=== PATIENT | male | born 1990 | race Caucasian/White ===

== ENCOUNTER 2019-06-10 21:14 | Emergency (ER) | payer MEDICARE, OTHER ==
[2019-06-10 21:21] VITALS: BP 160/84; PULSE 85; RESP 18; TEMP 99.3
[2019-06-10] MEDS ORDERED: ASPIRIN-ACET-CAFF 250-250-65MG 1 EACH TAB PO STA (21:35)
--- NOTE | 2019-06-10 21:37 | ED ---
Headache HPI - General Chief Complaint: Headache Stated Complaint: Headache Time Seen by Provider: 06/10/19 21:28 Mode of arrival: ambulatory Limitations: no limitations - History of Present Illness Initial Comments: 28-year-old male patient presents to the emergency department today for evaluation of headache. Patient states that headache started around 10:00 this morning. Patient states the headache is in the frontal region is reporting as a 5-6/10 on the pain scale. Patient denies any blurred or double vision with this. Denies any nausea, vomiting, numbness, tingling, or weakness. Denies any neck pain, fever, or chills. Patient states he has had similar type headaches in the past. Denies this being the worst headache of his life. Patient denies any recent head injury. States he came in to find out why he is getting headaches. Patient denies taking any medication for his symptoms. Patient states he has not seen his primary care physician for this. Patient is also requesting a work note as he called in the last 2 days. Patient denies any recent rash, fever, chills, shortness breath, chest pain, abdominal pain, diarrhea, constipation, back pain, dizziness, weakness, hematuria, dysuria, urinary urgency, urinary frequency, or any other complaints. - Related Data Home Medications Medication Instructions Recorded Confirmed Divalproex ER [Depakote ER] 500 mg PO HS 06/10/19 06/10/19 buPROPion XL [Wellbutrin Xl] 150 mg PO DAILY 06/10/19 06/10/19 risperiDONE 2 mg PO QAM 06/10/19 06/10/19 Allergies Allergy/AdvReac Type Severity Reaction Status Date / Time No Known Allergies Allergy Verified 06/10/19 21:41 Review of Systems ROS Statement: Those systems with pertinent positive or pertinent negative responses have been documented in the HPI. ROS Other: All systems not noted in ROS Statement are negative. Past Medical History Past Medical History: No Reported History History of Any Multi-Drug Resistant Organisms: None Reported Past Surgical History: No Surgical Hx Reported Past Psychological History: Bipolar Smoking Status: Current every day smoker Past Alcohol Use History: None Reported Past Drug Use History: None Reported General Exam Limitations: no limitations General appearance: alert, in no apparent distress, other (This is a well- developed, well-nourished adult male patient in no acute distress. Vital signs upon presentation are temperature 99.3F, pulse 85, respirations 18, blood pressure 160/84, pulse ox 98% on room air) Eye exam: Present: normal appearance, PERRL, EOMI. Absent: scleral icterus, con junctival injection, periorbital swelling ENT exam: Present: normal exam, normal oropharynx, mucous membranes moist Neck exam: Present: normal inspection, full ROM. Absent: tenderness, meningismus, lymphadenopathy Respiratory exam: Present: normal lung sounds bilaterally. Absent: respiratory distress, wheezes, rales, rhonchi, stridor Cardiovascular Exam: Present: regular rate, normal rhythm, normal heart sounds. Absent: systolic murmur, diastolic murmur, rubs, gallop, clicks GI/Abdominal exam: Present: soft, normal bowel sounds. Absent: distended, tenderness, guarding, rebound, rigid Neurological exam: Present: alert, oriented X3, CN II-XII intact, other (Strength in all 4 extremities is 5/5.) Psychiatric exam: Present: normal affect, normal mood Skin exam: Present: warm, dry, intact, normal color. Absent: rash Course Vital Signs 06/10/19 21:18 Temperature 99.3 F Pulse Rate 85 Respiratory 18 Rate Blood Pressure 160/84 O2 Sat by Pulse 98 Oximetry Medical Decision Making - Medical Decision Making 28-year-old male patient presents to the emergency department today for evaluation of headache. Patient states he had a headache since around 10 AM. Denies taking any medication for his symptoms. Denies any associated symptoms. Denies this being the worst headache of his life. Physical examination is unremarkable. He is neurologically intact with no focal deficits. He is requesting a work note. He will be discharged to follow-up with his primary care physician for recheck in 1-2 days. Return parameters were discussed in detail. He verbalizes understanding and agrees with this plan. Disposition Clinical Impression: Acute headache Disposition: HOME SELF-CARE Condition: Good Instructions (If sedation given, give patient instructions): Acute Headache (ED) Additional Instructions: Increase fluids. Rest. Keep headache diary if symptoms seem to persist. Follow up with primary care physician for recheck in 1-2 days. One has been recommended for you. Return to the emergency department for any new, worsening, or concerning symptoms. Is patient prescribed a controlled substance at d/c from ED?: No Referrals: Olena Craig MD [STAFF PHYSICIAN] - 1-2 days Time of Disposition: 21:36
== END 2019-06-10 21:57 | disposition home or self-care (01) ==
LOC: EC 21:14 → MERGE 21:14 → EC 21:57
DX: R51 Headache (principal); F31.9 Bipolar disorder, unspecified; F17.200 Nicotine dependence, unspecified, uncomplicated; Z79.899 Other long term (current) drug therapy
CPT/HCPCS: 99283

== ENCOUNTER 2019-06-21 14:23 | Emergency (ER) | payer MEDICARE, OTHER ==
[2019-06-21 14:34] VITALS: BP 126/80; PULSE 98; RESP 18; TEMP 98.3
[2019-06-21] MEDS ORDERED: KETOROLAC 60 MG/2 ML VIAL IM STA (16:36)
[2019-06-21] MEDS ORDERED: ONDANSETRON ODT 4 MG TAB PO STA (16:36)
[2019-06-21] MEDS ORDERED: diphenhydrAMINE 50 MG CAP PO STA (16:36)
--- NOTE | 2019-06-21 17:28 | ED ---
Headache HPI - General Chief Complaint: Headache Stated Complaint: Headache Time Seen by Provider: 06/21/19 16:15 Mode of arrival: ambulatory Limitations: no limitations - History of Present Illness Initial Comments: 28-year-old male presents emergency department for headache x 1 week. Patient states he has had on and off the past week he states it seems to go away coffee. Patient states he does not want to go to work. Patient was a visual changes nausea vomiting, neck, stiffness he denies any dizziness fevers. Patient denies any sudden onset of the headache he denies this being the worst headache of his life. Patient states he does struggle with chronic headaches. Patient denies sensation deficits to upper or lower,extremities any noted weakness speech changes. Patient has no other complaints. - Related Data Home Medications Medication Instructions Recorded Confirmed Divalproex ER [Depakote ER] 500 mg PO HS 06/10/19 06/10/19 buPROPion XL [Wellbutrin Xl] 150 mg PO DAILY 06/10/19 06/10/19 risperiDONE 2 mg PO QAM 06/10/19 06/10/19 Allergies Allergy/AdvReac Type Severity Reaction Status Date / Time No Known Allergies Allergy Verified 06/21/19 14:34 Review of Systems ROS Statement: Those systems with pertinent positive or pertinent negative responses have been documented in the HPI. ROS Other: All systems not noted in ROS Statement are negative. Past Medical History Past Medical History: Asthma History of Any Multi-Drug Resistant Organisms: None Reported Past Surgical History: No Surgical Hx Reported Past Psychological History: Bipolar Smoking Status: Current every day smoker Past Alcohol Use History: None Reported Past Drug Use History: None Reported General Exam - General Exam Comments Initial Comments: General: The patient is awake and alert, in no distress, and does not appear acutely ill. Eye: Pupils are equal, round and reactive to light, extra-ocular movements are intact. No nystagmus. There is normal conjunctiva bilaterally. No signs of icterus. Ears, nose, mouth and throat: There are moist mucous membranes and no oral lesions. Neck: The neck is supple, there is no tenderness or JVD. Cardiovascular: There is a regular rate and rhythm. No murmur, rub or gallop is appreciated. Respiratory: Lungs are clear to auscultation, respirations are non-labored, breath sounds are equal. No wheezes, stridor, rales, or rhonchi. Gastrointestinal: Soft, non-distended, non-tender abdomen without masses or organomegaly noted. There is no rebound or guarding present. Musculoskeletal: Normal ROM, no tenderness. Strength 5/5. Sensation intact. Pulses equal bilaterally 2+. Neurological: A&O x 3. CN II-XII intact, memory intact to immediately, intermediate and termite treater helper recall. Able to follow simple verbal. Able to name a common object (pen). High quality, labial (pa) and lingual (la) speech. Low quality posterior pharynx/larynx (ga) voice sounds. Able to express general knowledge (days in a week). No hemineglect or inattention noted. Finger agnosia (-) and spatially oriented (identified L index finger touched R shoulder with L index finger). Light touch and temperature sensation present over the face, chest, abdomen, back, UE bilaterally, and LE bilaterally. Able to localize point during point localization b/l and extinction. No visible bulk atrophy, hypertrophy, fasciculations, or myoclonus of the UE or LE b/l. Full PROM in UE and LE b/l. Bilateral muscle strength 5/5 for the following muscles: deltoid, biceps, triceps, brachioradialis, wrist extensors/flexor, hip flexor, hip abductors/adductors, hamstrings, quadriceps, feet dorsiflexors/plantar flexors. Finger to nose, finger to the examiners finger, and heel to andrews coordinated and accurate b/l. Coordinated and even demonstration of hand flip, finger to thumb, and toe tap b/l. Gait is coordinated and even in stride with tandem, toe and heel walk. Maintains balance with monopedal stance. (-) Romberg. (-) pronator drift. No nuchal rigidity. Skin: Skin is warm and dry and no rashes or lesions are noted. Psychiatric: Cooperative, appropriate mood & affect, normal judgment. Limitations: no limitations Course Vital Signs 06/21/19 06/21/19 14:32 18:03 Temperature 98.3 F 98.3 F Pulse Rate 98 98 Respiratory 18 18 Rate Blood Pressure 126/80 126/80 O2 Sat by Pulse 95 95 Oximetry Medical Decision Making - Medical Decision Making 28-year-old male presents emergency department for evaluation of headache. Patient states he has had these in the past per patient states it occurs when he doesn't drink coffee. Patient has no focal neurological deficits. No nuchal irritation afebrile well-appearing nontoxic. Patient states he does want a work note. Patient was riding medications to alleviate headache. He states his headache is gone. Patient states he is ready to go home. Return parameters were discussed patient was discharged appearing well Disposition Clinical Impression: Headache Disposition: HOME SELF-CARE Condition: Good Instructions (If sedation given, give patient instructions): Acute Headache (ED) Additional Instructions: Please use medication as discussed. Please follow-up with family doctor in the next 2 days. Please return to emergency room if the symptoms increase or worsen or for any other concerns. Is patient prescribed a controlled substance at d/c from ED?: No Referrals: None,Stated [Primary Care Provider] - 1-2 days [facility] - 1-2 days Time of Disposition: 17:41
== END 2019-06-21 17:48 | disposition home or self-care (01) ==
LOC: EEVIPCON 14:23 → EC 14:23
DX: R51 Headache (principal); F31.9 Bipolar disorder, unspecified; F17.200 Nicotine dependence, unspecified, uncomplicated; Z79.899 Other long term (current) drug therapy
CPT/HCPCS: 99283; 96372; J1885

== ENCOUNTER 2019-10-11 21:55 | Emergency (ER) | payer MEDICARE, OTHER ==
[2019-10-11 22:07] VITALS: BP 158/99; TEMP 98.8
--- NOTE | 2019-10-11 22:37 | ED ---
Wound/Laceration HPI - General Chief Complaint: Wound/Laceration Stated Complaint: foot infection Time Seen by Provider: 10/11/19 22:20 Source: patient, family, RN notes reviewed, old records reviewed, Caregiver Mode of arrival: ambulatory Limitations: no limitations - History of Present Illness Initial Comments: PAtient is a 29 year old male with left foot pain, erythema nad swelling from broken blister. PAtient reports that he had some pus removed from it earlier today. He believes he got the blister from his shoes, and opened up and then caused cellulitis. Patient reports full sensation and ROM of foot. Onset/Timin -: days(s) - Related Data Home Medications Medication Instructions Recorded Confirmed Divalproex ER [Depakote ER] 500 mg PO HS 06/10/19 06/10/19 buPROPion XL [Wellbutrin Xl] 150 mg PO DAILY 06/10/19 06/10/19 risperiDONE 2 mg PO QAM 06/10/19 06/10/19 Previous Rx's Medication Instructions Recorded Sulfamethox-Tmp 800-160Mg [Bactrim 2 tab PO Q12HR #40 tab 10/11/19 DS 800-160 mg] Allergies Allergy/AdvReac Type Severity Reaction Status Date / Time No Known Allergies Allergy Verified 06/21/19 14:34 Review of Systems ROS Statement: Those systems with pertinent positive or pertinent negative responses have been documented in the HPI. ROS Other: All systems not noted in ROS Statement are negative. Past Medical History Past Medical History: Asthma History of Any Multi-Drug Resistant Organisms: None Reported Past Surgical History: No Surgical Hx Reported Past Psychological History: Bipolar Smoking Status: Current every day smoker Past Alcohol Use History: None Reported Past Drug Use History: None Reported General Exam Limitations: no limitations General appearance: alert, in no apparent distress Head exam: Present: atraumatic, normocephalic, normal inspection Eye exam: Present: normal appearance, PERRL, EOMI. Absent: scleral icterus, conjunctival injection, periorbital swelling ENT exam: Present: normal exam, mucous membranes moist Neck exam: Present: normal inspection. Absent: tenderness, meningismus, lymphadenopathy Respiratory exam: Present: normal lung sounds bilaterally. Absent: respiratory distress, wheezes, rales, rhonchi, stridor Cardiovascular Exam: Present: regular rate, normal rhythm, normal heart sounds. Absent: systolic murmur, diastolic murmur, rubs, gallop, clicks GI/Abdominal exam: Present: soft, normal bowel sounds. Absent: distended, tenderness, guarding, rebound, rigid Extremities exam: Present: normal inspection, full ROM, normal capillary refill. Absent: tenderness, pedal edema, joint swelling, calf tenderness Left Knee exam: Present: normal inspection, full ROM Lower Leg exam: Present: normal inspection, full ROM Ankle exam: Present: normal inspection, full ROM Foot/Toe exam: Present: tenderness, swelling, erythema. Absent: normal inspection (over dorsum of foot with central blister) Back exam: Present: normal inspection Course Vital Signs 10/11/19 10/11/19 22:04 22:43 Temperature 98.8 F Pulse Rate 125 H 104 H Respiratory 16 18 Rate Blood Pressure 158/99 O2 Sat by Pulse 96 96 Oximetry Medical Decision Making - Medical Decision Making This is a 29 year old male with CC of left foot pain. Patient has broken blister and surrounding cellulitis. Patient advised to follow up with PCP and will place on bactrim. Wound culture completed. Patient advised to return to ED if any alarming signs or symptoms occur. Disposition Clinical Impression: Cellulitis of foot Disposition: HOME SELF-CARE Condition: Good Instructions (If sedation given, give patient instructions): Cellulitis (ED) Additional Instructions: Please use medication as discussed. Please follow up with family doctor if symptoms have not improved over the next two days. Please return to the emergency room if your symptoms increase or worsen or for any other concerns. Prescriptions: Sulfamethox-Tmp 800-160Mg [Bactrim DS 800-160 mg] 2 tab PO Q12HR #40 tab Is patient prescribed a controlled substance at d/c from ED?: No Referrals: None,Stated [Primary Care Provider] - 1-2 days Asif Chamorro [STAFF PHYSICIAN] - 1-2 days Time of Disposition: 22:36
[2019-10-11 22:44] VITALS: PULSE 104; RESP 18
== END 2019-10-11 22:44 | disposition home or self-care (01) ==
LOC: EC 21:55
DX: L03.116 Cellulitis of left lower limb (principal); F31.9 Bipolar disorder, unspecified; F17.200 Nicotine dependence, unspecified, uncomplicated; Z79.899 Other long term (current) drug therapy
CPT/HCPCS: 87070; 87077; 87186; 87205; 99284

== ENCOUNTER 2019-10-17 19:09 | Emergency (ER) | payer MEDICARE, OTHER ==
[2019-10-17 19:20] VITALS: BP 150/85; PULSE 104; RESP 18; TEMP 98.3
[2019-10-17] MEDS ORDERED: CLINDAMYCIN 150 MG CAP PO STA (19:53)
--- NOTE | 2019-10-17 19:56 | ED ---
Skin/Abscess/FB HPI - General Chief complaint: Skin/Abscess/Foreign Body Stated complaint: poss MRSA on foot Time Seen by Provider: 10/17/19 19:25 Source: patient Mode of arrival: ambulatory Limitations: no limitations - History of Present Illness Initial comments: 29-year-old male patient presents to the emergency department today for evaluation of abscess to the dorsal aspect of the left foot. Patient was seen and evaluated 6 days ago for similar symptoms. Patient states that the initial abscess was drained and he was started on antibiotics. States he's been taking antibiotic for the last 6 days. He did test positive for MRSA. States this morning he noticed a second abscess beginning to form to the same area. He denies any fever or chills. Denies any significant pain to the area. Denies any nausea or vomiting. Patient denies any other medical conditions. Denies any use of other medications. Patient denies any recent rash, shortness breath, chest pain, abdominal pain, diarrhea, constipation, back pain, numbness, tingling, dizziness, weakness, hematuria, dysuria, urinary urgency, urinary frequency, headache, visual changes, or any other complaints. - Related Data Home Medications Medication Instructions Recorded Confirmed Divalproex ER [Depakote ER] 500 mg PO HS 06/10/19 06/10/19 buPROPion XL [Wellbutrin Xl] 150 mg PO DAILY 06/10/19 06/10/19 risperiDONE 2 mg PO QAM 06/10/19 06/10/19 Previous Rx's Medication Instructions Recorded Sulfamethox-Tmp 800-160Mg [Bactrim 2 tab PO Q12HR #40 tab 10/11/19 DS 800-160 mg] Clindamycin HCl [Cleocin] 450 mg PO Q8H #90 cap 10/17/19 Allergies Allergy/AdvReac Type Severity Reaction Status Date / Time No Known Allergies Allergy Verified 10/17/19 19:20 Review of Systems ROS Statement: Those systems with pertinent positive or pertinent negative responses have been documented in the HPI. ROS Other: All systems not noted in ROS Statement are negative. Past Medical History Past Medical History: Asthma History of Any Multi-Drug Resistant Organisms: MRSA Date of last positivie culture/infection: 10/11/19 MDRO Source:: MRSA FOOT Past Surgical History: No Surgical Hx Reported Past Psychological History: Bipolar Smoking Status: Former smoker Past Alcohol Use History: None Reported Past Drug Use History: None Reported General Exam Limitations: no limitations General appearance: alert, in no apparent distress, other (This is a well- developed, well-nourished adult male patient in no acute distress. Vital signs upon presentation are temperature 98.3F, pulse 104, respirations 18, blood pressure 150/85, pulse ox 97% on room air.) Eye exam: Present: normal appearance, PERRL, EOMI. Absent: scleral icterus, conjunctival injection, periorbital swelling ENT exam: Present: normal exam, normal oropharynx, mucous membranes moist Respiratory exam: Present: normal lung sounds bilaterally. Absent: respiratory distress, wheezes, rales, rhonchi, stridor Cardiovascular Exam: Present: regular rate, normal rhythm, normal heart sounds. Absent: systolic murmur, diastolic murmur, rubs, gallop, clicks Extremities exam: Present: full ROM, normal capillary refill, other (There is a 1 cm abscess with mild surrounding erythema to the dorsal aspect of the left foot. Just to the right of this lesion is a healing abscess, no fluid collection noted. Skin is otherwise pink, warm, dry. Cap refills less than 3 seconds. Pedal and posttibial pulses are 2+ and equal bilaterally.). Absent: normal inspection, tenderness, pedal edema, joint swelling, calf tenderness Neurological exam: Present: alert, oriented X3, CN II-XII intact Psychiatric exam: Present: normal affect, normal mood Skin exam: Present: warm, dry, intact, normal color. Absent: rash Course Vital Signs 10/17/19 19:17 Temperature 98.3 F Pulse Rate 104 H Respiratory 18 Rate Blood Pressure 150/85 O2 Sat by Pulse 97 Oximetry Medical Decision Making - Medical Decision Making 29-year-old male patient presents to the emergency department today for evaluation of abscess to the left foot. Physical examination did reveal 1 cm abscess to the left foot, this is draining. Fluid. Patient has a healing abscess with no fluid collection noted to the right of this lesion. Patient has been taking Bactrim for the last 6 days. We will switch this to clindamycin. He did previously have a culture positive for MRSA. He is instructed to continue applying warm compresses to the area. He'll be discharged with his primary care physician for recheck in 1-2 days. Return parameters were discussed in detail. He verbalizes understanding and agrees with this plan. - Lab Data Lab Results 10/17/19 Range/Units 20:11 POC Glucose (mg/dL) 128 H (75-99) mg/dL POC Glu Music Minister ID Zaida Benítez Disposition Clinical Impression: Abscess Disposition: HOME SELF-CARE Condition: Good Instructions (If sedation given, give patient instructions): Abscess (ED) Additional Instructions: Apply warm compresses to abscess 20 minutes at a time, three times per day. Complete antibiotic prescription in full. Follow up with your primary care physician for recheck in 1-2 days. Return to the emergency department for any new, worsening, or concerning symptoms. Prescriptions: Clindamycin HCl [Cleocin] 450 mg PO Q8H #90 cap Is patient prescribed a controlled substance at d/c from ED?: No Referrals: Elizabeth Mcgarry MD [REFERRING] - 1-2 days Time of Disposition: 19:56
[2019-10-17 20:17] LABS: Glucose,Whole Blood 128 mg/dL (75-99)
== END 2019-10-17 20:15 | disposition home or self-care (01) ==
LOC: EC 19:09
DX: L02.612 Cutaneous abscess of left foot (principal); F31.9 Bipolar disorder, unspecified; Z87.891 Personal history of nicotine dependence; Z79.899 Other long term (current) drug therapy; Z86.14 Personal history of Methicillin resistant Staphylococcus aureus infection
CPT/HCPCS: 36415; 99283

== ENCOUNTER 2019-10-31 20:21 | Emergency (ER) | payer MEDICARE, OTHER ==
[2019-10-31 20:25] VITALS: BP 143/92; PULSE 94; RESP 16; TEMP 98.9
--- NOTE | 2019-10-31 20:35 | ED ---
General Adult HPI - General Source: patient, RN notes reviewed Mode of arrival: ambulatory Limitations: no limitations <Neo Mane - Last Filed: 10/31/19 20:36> <Siena Walls - Last Filed: 11/02/19 22:34> - General Chief complaint: Extremity Injury, Lower Stated complaint: Foot infection Time Seen by Provider: 10/31/19 20:26 - History of Present Illness Initial comments: 29-year-old male presents to the emergency department to have his foot rechecked. Patient states that several weeks ago he had an abscess on his left foot. Patient states that he has been taking his antibiotics which are almost complete. Patient states that the abscess has healed in [place]. However since he was told he now has MRSA he wanted some to double check that it was healing. States it feels much better. States he has not had any redness or drainage. States the abscesses are healed. Denies fevers or chills. Patient also requesting work note .Patient has no other complaints at this time including shortness of breath, chest pain, abdominal pain, nausea or vomiting, headache, or visual changes. (Noe Mane) - Related Data Home Medications Medication Instructions Recorded Confirmed Divalproex ER [Depakote ER] 500 mg PO HS 06/10/19 06/10/19 buPROPion XL [Wellbutrin Xl] 150 mg PO DAILY 06/10/19 06/10/19 risperiDONE 2 mg PO QAM 06/10/19 06/10/19 Previous Rx's Medication Instructions Recorded Sulfamethox-Tmp 800-160Mg [Bactrim 2 tab PO Q12HR #40 tab 10/11/19 DS 800-160 mg] Clindamycin HCl [Cleocin] 450 mg PO Q8H #90 cap 10/17/19 Allergies Allergy/AdvReac Type Severity Reaction Status Date / Time No Known Allergies Allergy Verified 10/31/19 20:24 Review of Systems ROS Other: All systems not noted in ROS Statement are negative. <Neo Mane - Last Filed: 10/31/19 20:36> ROS Other: All systems not noted in ROS Statement are negative. <Siena Walls - Last Filed: 11/02/19 22:34> ROS Statement: Those systems with pertinent positive or pertinent negative responses have been documented in the HPI. Past Medical History Past Medical History: Asthma History of Any Multi-Drug Resistant Organisms: MRSA Date of last positivie culture/infection: 10/11/19 MDRO Source:: MRSA FOOT Past Surgical History: No Surgical Hx Reported Past Psychological History: Bipolar Smoking Status: Former smoker Past Alcohol Use History: None Reported Past Drug Use History: None Reported <Neo Mane - Last Filed: 10/31/19 20:36> General Exam Limitations: no limitations General appearance: alert, in no apparent distress Head exam: Present: atraumatic, normocephalic, normal inspection Eye exam: Present: normal appearance, PERRL, EOMI. Absent: scleral icterus, conjunctival injection, periorbital swelling ENT exam: Present: normal exam, mucous membranes moist Neck exam: Present: normal inspection. Absent: tenderness, meningismus, lymphadenopathy Respiratory exam: Present: normal lung sounds bilaterally. Absent: respiratory distress, wheezes, rales, rhonchi, stridor Cardiovascular Exam: Present: regular rate, normal rhythm, normal heart sounds. Absent: systolic murmur, diastolic murmur, rubs, gallop, clicks Extremities exam: Present: normal inspection (Personal of the left foot appears within normal limits. There is no erythema. There is evidence of healed abscess. No active abscess.), full ROM (of RLE and digits of right foot), normal capillary refill (Capillary refill less than 2 seconds, DP pulse 2+ in the left lower extremity.), other (sensation intact in the left lower external he.). Absent: pedal edema, joint swelling, calf tenderness Neurological exam: Present: alert <Neo Mane - Last Filed: 10/31/19 20:36> Course Vital Signs 10/31/19 20:22 Temperature 98.9 F Pulse Rate 94 Respiratory 16 Rate Blood Pressure 143/92 O2 Sat by Pulse 98 Oximetry Medical Decision Making <Neo Mane - Last Filed: 10/31/19 20:36> <Siena Walls - Last Filed: 11/02/19 22:34> - Medical Decision Making Patient presents for recheck of wounds to the dorsum of the left foot. States these are healed and he is finishing his antibiotics but as he was diagnosed with MRSA he wants it double checked. On exam there is evidence of well-healed abscess. No current abscess. No cellulitis. No spreading or streaking redness. No fevers or chills. Patient also requesting work no. At this time I do not see active infection. Discussed the patient is to follow-up with primary care. Discussed that he can return here for worsening symptoms. (Neo Mane) I was available for consultation in the emergency department. The history and physical exam were done by the midlevel provider. I was consulted for this patients care. I reviewed the case with the midlevel provider and based on their presentation of the patient, I agree with the assessment, medical decision making and plan of care as documented. Chart was dictated using tic dictation software. Attempts were made to correct any dictation errors however some typographical errors may persist. (Siena Walls) Disposition Is patient prescribed a controlled substance at d/c from ED?: No Time of Disposition: 20:34 <Neo Mane - Last Filed: 10/31/19 20:36> <Siena Walls - Last Filed: 11/02/19 22:34> Clinical Impression: Well adult health check Disposition: HOME SELF-CARE Condition: Good Instructions (If sedation given, give patient instructions): MRSA (Methicillin- Resistant Staphylococcus Aureus) (ED) Additional Instructions: Please follow up with primary care for recheck in the next several days. Please return here to the emergency department if you have any worsening symptoms such as spreading redness or abscess formation or develop fevers. Referrals: None,Stated [Primary Care Provider] - 1-2 days Fabian Gomez MD [STAFF PHYSICIAN] - 1-2 days Bharti Bartlett MD [STAFF PHYSICIAN] - 1-2 days Croeen Atwood MD [STAFF PHYSICIAN] - 1-2 days Iban Genao MD [Medical Doctor] - 1-2 days
== END 2019-10-31 21:04 | disposition home or self-care (01) ==
LOC: EC 20:21
DX: Z00.00 Encounter for general adult medical examination without abnormal findings (principal); F31.9 Bipolar disorder, unspecified; Z79.899 Other long term (current) drug therapy; Z86.14 Personal history of Methicillin resistant Staphylococcus aureus infection; Z87.891 Personal history of nicotine dependence
CPT/HCPCS: 99283

== ENCOUNTER 2023-12-23 16:38 | Inpatient (IN) | payer MEDICARE, MEDICAID ==
--- NOTE | 2023-12-23 17:57 | ED ---
General Adult HPI - General Chief complaint: Psychiatric Symptoms Stated complaint: Court Order - Mental Health Time Seen by Provider: 12/23/23 17:12 Source: patient, police, RN notes reviewed Mode of arrival: ambulatory Limitations: no limitations - History of Present Illness Initial comments: Patient is a pleasant 33-year-old male present to the emergency department for mental health evaluation. Patient admits to not taking his medications for a couple weeks however states he has been taking them again. Patient has petition with concerns for patient making suicidal statements. Patient states he did have suicidal thoughts and plan however does not feel so at this time. Petition states patient has had them intermittently. Patient denies any new physical complaints. No alcohol or street drug use. No homicidal thoughts. - Related Data Home Medications Medication Instructions Recorded Confirmed Atorvastatin [Lipitor] 10 mg PO DAILY 12/23/23 12/23/23 amLODIPine [Norvasc] 5 mg PO DAILY 12/23/23 12/23/23 buPROPion XL [Wellbutrin XL] 300 mg PO DAILY 12/23/23 12/23/23 lisinopriL [Zestril] 5 mg PO DAILY 12/23/23 12/23/23 risperiDONE [RisperDAL] 3 mg PO HS 12/23/23 12/23/23 traZODone HCL [Desyrel] 50 mg PO HS 12/23/23 12/23/23 Allergies Allergy/AdvReac Type Severity Reaction Status Date / Time No Known Allergies Allergy Verified 12/23/23 17:47 Review of Systems ROS Statement: Those systems with pertinent positive or pertinent negative responses have been documented in the HPI. ROS Other: All systems not noted in ROS Statement are negative. Constitutional: Denies: fever Eyes: Denies: eye pain ENT: Denies: ear pain Respiratory: Denies: cough, dyspnea Cardiovascular: Denies: chest pain Psychiatric: Reports: as per HPI, depression, suicidal thoughts Past Medical History Past Medical History: Asthma History of Any Multi-Drug Resistant Organisms: MRSA Date of last positivie culture/infection: 10/11/19 MDRO Source:: MRSA FOOT Past Surgical History: No Surgical Hx Reported Past Psychological History: Anxiety, Bipolar, Depression Past Alcohol Use History: None Reported Past Drug Use History: None Reported General Exam Limitations: no limitations General appearance: alert, in no apparent distress Head exam: Present: normocephalic Eye exam: Present: normal appearance Neck exam: Present: normal inspection Respiratory exam: Present: normal lung sounds bilaterally Cardiovascular Exam: Present: regular rate, normal rhythm GI/Abdominal exam: Present: soft. Absent: tenderness Extremities exam: Present: normal inspection Neurological exam: Present: alert Psychiatric exam: Present: flat affect Skin exam: Present: normal color Course Vital Signs 12/23/23 16:57 Temperature 98.2 F Pulse Rate 105 H Respiratory 20 Rate Blood Pressure 146/97 O2 Sat by Pulse 98 Oximetry Medical Decision Making - Medical Decision Making Was pt. sent in by a medical professional or institution (, PA, TIE MAN, urgent care, hospital, or long term...) When possible be specific @ -Patient was sent in by court order Did you speak to anyone other than the patient for history (EMS, parent, family, police, friend...)? What history was obtained from this source @ -No Did you review nursing and triage notes (agree or disagree)? Why? @ -I reviewed and agree with nursing and triage notes Were old charts reviewed (outside hosp., previous admission, EMS record, old EKG, old radiological studies, urgent care reports/EKG's, long term records)? Report findings @ -Petition reviewed Differential Diagnosis (chest pain, altered mental status, abdominal pain women, abdominal pain men, vaginal bleeding, weakness, fever, dyspnea, syncope, headache, dizziness, GI bleed, back pain, seizure, CVA, palpatations, mental health, musculoskeletal)? @ -Differential Mental Health Depression, anxiety, bipolar, psychosis, schizophrenia, borderline personality, situational depression, adjustment disorder, behavioral disorder, brain tumor, malingering, substance abuse, encephalopathy, medication reaction, dementia, hypothyroidism, degenerative neurologic disorder, lupus.... This is not meant to be all-inclusive list EKG interpreted by me (3pts min.). @ -As above X-rays interpreted by me (1pt min.). @ -None done CT interpreted by me (1pt min.). @ -None done U/S interpreted by me (1pt. min.). @ -None done What testing was considered but not performed or refused? (CT, X-rays, U/S, labs)? Why? @ -None What meds were considered but not given or refused? Why? @ -None Did you discuss the management of the patient with other professionals (professionals i.e. , PA, TIE MAN, lab, RT, psych nurse, high school social science teacher, towboat operator, teacher, investigation officer, trimming caser)? Give summary @ -Discussed with psychiatric nurse with plans for transfer admission Was smoking cessation discussed for >3mins.? @ -No Was critical care preformed (if so, how long)? @ -31 minutes critical care Were there social determinants of health that impacted care today? How? (Homelessness, low income, unemployed, alcoholism, drug addiction, transportation, low edu. Level, literacy, decrease access to med. care, half-way, rehab)? @ -No Was there de-escalation of care discussed even if they declined (Discuss DNR or withdrawal of care, Hospice)? DNR status @ -No What co-morbidities impacted this encounter? (DM, HTN, Smoking, COPD, CAD, Cancer, CVA, ARF, Chemo, Hep., AIDS, mental health diagnosis, sleep apnea, morbid obesity)? @ -None Was patient admitted / discharged? Hospital course, mention meds given and route, prescriptions, significant lab abnormalities, going to OR and other pertinent info. @ -Positive clinical certificate completed. Patient presents with intermittent suicidal thoughts and plans. Patient not taking his medication as prescribed. Patient will be admitted for psychiatric care Undiagnosed new problem with uncertain prognosis? @ -No Drug Therapy requiring intensive monitoring for toxicity (Heparin, Nitro, Insulin, Cardizem)? @ -No Were any procedures done? @ -No Diagnosis/symptom? @ -Depression with suicidal ideation Acute, or Chronic, or Acute on Chronic? @ -Acute Uncomplicated (without systemic symptoms) or Complicated (systemic symptoms)? @ -Default Side effects of treatment? @ -No Exacerbation, Progression, or Severe Exacerbation? @ -No Poses a threat to life or bodily function? How? (Chest pain, [place], [place], pneumonia, PE, COPD, DKA, ARF, appy, cholecystitis, CVA, Diverticulitis, Homicidal, Suicidal, threat to staff... and all critical care pts) @ -Suicidal with potential threat to life Disposition Clinical Impression: Depression, Suicidal ideation Disposition: TRANSFER TO PSYCH HOSP/UNIT Is patient prescribed a controlled substance at d/c from ED?: No Referrals: Nonstaff,Physician [Primary Care Provider] - 1-2 days Time of Disposition: 21:13
[2023-12-23 23:59] LABS: Amphetamine Screen,Urine Not Detected (NotDetected); Barbiturate Screen,Urine Not Detected (NotDetected); Benzodiazepines Screen,Urine Not Detected (NotDetected); Cocaine Screen,Urine Not Detected (NotDetected); Methadone Screen, Urine Not Detected (NotDetected); Opiate Screen,Urine Not Detected (NotDetected); Oxycodone Screen, Urine Not Detected (NotDetected); Phencyclidine Screen,Urine Not Detected (NotDetected); Tricyclic Antidepressant,Urine Not Detected (NotDetected); Urn Cannabinoid Scrn Not Detected (NotDetected)
[2023-12-24] MEDS ORDERED: HALOPERIDOL LACTATE 5 MG/ML 1 ML VIAL IM PRN (00:31)
[2023-12-24] MEDS ORDERED: LORazepam 2 MG/ML INJ IM PRN (00:31)
[2023-12-24] MEDS ORDERED: MAG HYDROX/AL HYDROX/SIMETH 355 ML BOTTLE PO PRN (00:31)
[2023-12-24] MEDS ORDERED: IBUPROFEN 600 MG TAB PO PRN (00:31)
[2023-12-24] MEDS ORDERED: LORazepam 1 MG TAB PO PRN (00:31)
[2023-12-24] MEDS ORDERED: MAGNESIUM HYDROXIDE 2,400 MG/30 ML CUP PO PRN (00:31)
[2023-12-24] MEDS ORDERED: ACETAMINOPHEN TAB 325 MG TAB PO PRN (00:31)
[2023-12-24] MEDS ORDERED: haloperidoL 5 MG TAB PO PRN (00:31)
[2023-12-24 01:51] LABS: Appearance,Urine Clear (Clear); Bilirubin,Urine Negative (Negative); Blood,Urine Trace (Negative); Calcium Oxalate Crystals,Urine Few /hpf; Color,Urine Light Yellow; Glucose,Urine (UA) Negative (Negative); Ketones,Urine Negative (Negative); Leukocyte Esterase,Urine Negative (Negative); Mucus,Urine Few /hpf; Nitrite,Urine Negative (Negative); Protein,Urine Negative (Negative); RBC,Urine 1 /hpf (0-5); Specific Gravity,Urine 1.019 (1.001-1.035); Urobilinogen,Urine <2.0 mg/dL (<2.0)
[2023-12-24] MEDS: amLODIPine 5 MG TAB PO SCH (08:58)
[2023-12-24] MEDS: lisinopriL 5 MG TAB PO SCH (08:58)
[2023-12-24] MEDS: ATORVASTATIN 10 MG TAB PO SCH (08:58)
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
[2023-12-24] MEDS: SERTRALINE 50 MG TAB PO SCH (12:11)
[2023-12-24] MEDS ORDERED: risperiDONE 1 MG TAB PO SCH (21:00)
[2023-12-24] MEDS: traZODone HCL 50 MG TAB PO SCH (21:30)
[2023-12-24] MEDS: PALIPERIDONE 3 MG TAB.ER.24 PO SCH (21:30)
--- NOTE | 2023-12-25 04:13 | P.CONS ---
History of Present Illness - Reason for Consult Consult date: 12/25/23 - History of Present Illness The patient is a 33-year-old male with a PMH of hypertension and hyperlipidemia who had presented to the emergency room with complaints of depression and suicidal ideation. Patient reports that he has been struggling with thoughts of depression for quite some time now. He however denied any physical complaints. He denied experiencing chest discomfort, shortness of breath, fever, chills, c ough, nausea, vomiting, abdominal pain, diarrhea. He reports compliance with his home medications. Review of systems: Pertinent positives and negatives as discussed in HPI, a complete review of syst ems was performed and all other systems are negative. Physical examination: General: non toxic, no distress, appears at stated age, normal weight Derm: no unusual rashes/lesions, no unusual ecchymoses, warm, dry Head: atraumatic, normocephalic, symmetric Eyes: EOMI, no lid lag, anicteric sclera ENT: Nose and ears atraumatic, no thrush, no pharyngeal erythema Neck: trachea midline, supple Mouth: no lip lesion, mucus membranes moist Cardiovascular: S1S2 reg, no murmur, no edema Lungs: CTA bilateral, no rhonchi, no rales , no accessory muscle use Abdominal: soft, nontender to palpation, no guarding Ext: no gross muscle atrophy, no contractures, Neuro: No gross focal neuro deficits noted Psych: Alert, oriented, appropriate affect Assessment: Hypertension, hyperlipidemia Depression and suicidal ideation Imaging: None performed Data Review: Urine toxicology unremarkable with UA also unremarkable with COVID-19 testing negative Plan: Resume home medications: Norvasc, lisinopril, Lipitor Defer management of depression and suicidal ideation to the primary psychiatry service Thank you for allowing us to participate in the care of this patient. We will follow peripherally. Do not hesitate to contact us with questions. Someone can be reached from the [facility] hospitalist group at all hours of the day at [phone]. Past Medical History Past Medical History: Asthma, Hyperlipidemia, Hypertension History of Any Multi-Drug Resistant Organisms: MRSA Year Discovered:: 10/11/19 MDRO Source:: MRSA FOOT Past Surgical History: No Surgical Hx Reported Past Anesthesia/Blood Transfusion Reactions: No Reported Reaction Past Psychological History: Anxiety, Bipolar, Depression Smoking Status: Former smoker Past Alcohol Use History: Occasional Past Drug Use History: Marijuana - Past Family History Mother History Unknown: Yes Medications and Allergies Home Medications Medication Instructions Recorded Confirmed Type Atorvastatin [Lipitor] 10 mg PO DAILY 12/23/23 12/23/23 History amLODIPine [Norvasc] 5 mg PO DAILY 12/23/23 12/23/23 History buPROPion XL [Wellbutrin XL] 300 mg PO DAILY 12/23/23 12/23/23 History lisinopriL [Zestril] 5 mg PO DAILY 12/23/23 12/23/23 History risperiDONE [RisperDAL] 3 mg PO HS 12/23/23 12/23/23 History traZODone HCL [Desyrel] 50 mg PO HS 12/23/23 12/23/23 History Allergies Allergy/AdvReac Type Severity Reaction Status Date / Time No Known Allergies Allergy Verified 12/23/23 17:47 Physical Exam Vitals: Vital Signs Temp Pulse Resp BP 12/24/23 09:03 96.6 F L 87 20 127/88
[2023-12-25 08:09] LABS: Basophils % (A) 0 %; Eosinophils # (A) 0.2 k/uL (0-0.7); Eosinophils % (A) 2 %; HCT 44.7 % (39.0-53.0); HGB 14.8 gm/dL (13.0-17.5); Lymphocytes # (A) 3.2 k/uL (1.0-4.8); Lymphocytes % (A) 31 %; MCH 28.1 pg (25.0-35.0); MCHC 33.1 g/dL (31.0-37.0); MCV 84.9 fL (80.0-100.0); Mean Platelet Volume 7.7; Monocytes # (A) 0.5 k/uL (0-1.0); Monocytes % (A) 5 %; Neutrophils % (A) 60 %; Platelet Count 270 k/uL (150-450); RBC 5.27 m/uL (4.30-5.90); WBC 10.1 k/uL (3.8-10.6)
[2023-12-25 08:27] LABS: ALT 21 U/L (4-49); AST 18 U/L (17-59); African American GFR (CKD) >90 (>60 ml/min/1.73 sqM); Albumin 4.4 g/dL (3.5-5.0); Alkaline Phosphatase 56 U/L (38-126); Anion Gap 10 mmol/L; Blood Urea Nitrogen 17 mg/dL (9-20); Calcium 9.8 mg/dL (8.4-10.2); Carbon Dioxide 28 mmol/L (22-30); Chloride 105 mmol/L (98-107); Glucose 90 mg/dL (74-99); Non-African American GFR(CKD) >90 (>60 ml/min/1.73 sqM); Potassium 4.3 mmol/L (3.5-5.1); Sodium 143 mmol/L (137-145); Total Bilirubin 1.5 mg/dL (0.2-1.3); Total Protein 7.4 g/dL (6.3-8.2)
[2023-12-25 15:37] LABS: Chol/HDL Ratio 3.72 Ratio; LDL Cholesterol,Calculated 56.4 mg/dL (0.0-131.0)
--- NOTE | 2023-12-25 21:06 | P.PN ---
Subjective Progress Note Date: 12/25/23 Subject data: the patient was seen chart was in case discussed with the nursing staff patient reports that this is the third mission he states that he was missing his cousin about a year ago and that they were extremely close he said that is finally decided that he needs to be alive for the sake of his and three children age 7 3 and one he said that he had stopped taking meds for about a week but that he is back on it now he denies any alcohol or substance use MENTAL STATUS EXAM: General Appearance: Patient appears to be stated age, is alert, directable, and attempts to cooperate. Patient appears to have fair hygiene and grooming. Has shorter hair, blackburn and glasses. Wearing street clothes. Behavior: Patient is seated without any agitated behavior. poor eye contact Speech: Patient's speech is fluent and nonpressured. slow, monotone Mood/Affect: Patient reports their mood is mad, affect is congruent and constricted. minimizing, guarded Suicidality/Homicidality: Patient denies having any homicidal ideation intent or plan. Denies any suicidal ideations intent or plan Perceptions: Patient denies any visual hallucinations and denies any auditory hallucinations, guarded Though content/process: There is no evidence of any delusional thought content focused on discharge Memory and concentration: AOX3, grossly intact for the purposes of this session. Can spell "WORLD" backwards Judgment and insight: poor/limited chronically. STRENGTHS/WEAKNESSES: strength is that patient is resilient. Weakness is that patient has poor judgment and is impulsive INTELLECT: below average IMPRESSIONS: depressive disorder, unspecified, r/o bipolar depression vs major depressive dis order intermittent explosive disorder intellectual disability PLAN: -Patient is admitted under involuntary status to [facility] for stabilization of psychiatric symptoms and safety. Patient has not signed adult voluntary form but did sign medication consent and is placed in patient's chart. A second cer tification was completed and along with petition will be filed for court. -Medications : Invega 3mg po qhs for psychosis/mood stabilization, Zoloft 50mg daily for mood/anxiety, trazodone 50mg qhs for sleep/mood -Ativan and Haldol PRN for agitation/aggression -Patient was informed of the risks, benefits and side effects of the medication and patient verbally consented to taking the medications. -Internal Medicine consult to perform medical evaluation and physical. -NRT - nonsmoker -SW on board for discharge planning. Encourage patient to participate in groups to work on coping skills. Will await deferral and court date. tai Gunderson Objective - Vital Signs Vital signs: Vital Signs Temp 98.0 F 12/25/23 06:09 Pulse 76 12/25/23 08:05 Resp 16 12/25/23 06:09 BP 112/78 12/25/23 08:05 Pulse Ox 98 12/25/23 06:09 FiO2 - Labs CBC & Chem 7: 12/25/23 07:48 12/25/23 07:48 Labs: Abnormal Lab Results - Last 24 Hours (Table) 12/25/23 Range/Units 07:48 Total Bilirubin 1.5 H (0.2-1.3) mg/dL Triglycerides 219.00 H (0.00-149.00) mg/dL VLDL Cholesterol, Calc 43.80 H (5.00-40.00) mg/dL HDL Cholesterol 36.80 L (40.00-60.00) mg/dL
--- NOTE | 2023-12-26 11:53 | P.PN ---
Progress Note - Text Progress Note Date: 12/26/23 Interval History: Patient was seen in group and was directable and agreeable to speak with commercial underwriter in the office. Patient states he is doing good today. Patient is very short with his responses, concrete. Patient is focused on discharge, as of right now, there is no set deferral date, however, the full hearing date is 12/30. Social Service Director spoke to patient about receiving a PORTER, to ensure compliance, patient agreeable. Patient offers no other complaints. At this time patient denies any suicidal or maurizio icidal ideations, intent or plan. Patient denies any auditory, visual hallucinations and denies any paranoia or delusions. Patient denies any side effects from the medications and has been compliant with meds. Patient has been going to groups and trying to participate. MENTAL STATUS EXAM: General Appearance: Patient appears to be stated age, is alert, directable, and attempts to cooperate. Patient appears to have fair hygiene and grooming. Has shorter hair, blackburn and glasses. Wearing street clothes. Behavior: Patient is seated without any agitated behavior. eye contact, mildly improving Speech: Patient's speech is fluent and nonpressured. Mood/Affect: Patient reports their mood good, affect is congruent and constricted. Suicidality/Homicidality: Patient denies having any homicidal ideation intent or plan. Denies any suicidal ideations intent or plan Perceptions: Patient denies any visual hallucinations and denies any auditory hallucinations Though content/process: There is no evidence of any delusional thought content focused on discharge, denies any paranoia at this time. Memory and concentration: AOX3, grossly intact for the purposes of this session. Judgment and insight: poor/limited chronically. Improving mildly IMPRESSIONS: depressive disorder, unspecified, r/o bipolar depression vs major depressive disorder intermittent explosive disorder intellectual disability PLAN: -Patient is admitted under involuntary status to [facility] for stabilization of psychiatric symptoms and safety. Patient has not signed adult voluntary form but did sign medication consent and is placed in patient's chart. A second certification was completed and along with petition will be filed for court. -Medications : d/c Invega PO, Zoloft 50mg daily for mood/anxiety, trazodone 50mg qhs for sleep/mood, patient is agreeable to be transitioned onto loading dose Invega Sustenna 234mg IM, today, Next dose 4/2 prior to discharge -Ativan and Haldol PRN for agitation/aggression -SW on board for discharge planning. Encourage patient to participate in groups to work on coping skills. Deferral is TBD, full hearing is 12/30 . Hopeful for discharge next Friday if patient signs deferral and improving psychiatrically.
[2023-12-26] MEDS: PALIPERIDONE IM 234 MG/1.5 ML SYG IM ONE (13:08)
--- NOTE | 2023-12-27 12:09 | P.PN ---
Progress Note - Text Progress Note Date: 12/27/23 Interval History: Patient was seen walking around the milieu and was agreeable to speak with this adjusto writer operator. Patient states he is doing good today. Patient is very short with his responses, concrete. Patient is focused on discharge. he states that he plans to be speaking with his today during visiting hours. He is hoping to be discharged soon because he says his been feeling better. He says he signed deferral. He agrees to continue to be on Invega PORTER. He reports sleeping and eating well. Patient offers no other complaints. At this time patient denies any suicidal or homicidal ideation, intent or plan. Patient denies any auditory, visual hallucinations and denies any paranoia or delusions. Patient denies any side effects from the medications and has been compliant with meds. MENTAL STATUS EXAM: General Appearance: Patient appears to be stated age, is alert, directable, and attempts to cooperate. Patient appears to have fair hygiene and grooming. Has shorter hair, blackburn and glasses. Wearing street clothes. Behavior: Patient is seated without any agitated behavior. eye contact, mildly improving Speech: Patient's speech is fluent and nonpressured. Mood/Affect: Patient reports their mood "good", affect is congruent and bright Suicidality/Homicidality: Patient denies having any homicidal ideation intent or plan. Denies any suicidal ideations intent or plan Perceptions: Patient denies any visual hallucinations and denies any auditory hallucinations Though content/process: There is no evidence of any delusional thought content, focused on discharge, denies any paranoia at this time. Memory and concentration: AOX3, grossly intact for the purposes of this session. Judgment and insight: poor/limited chronically. Improving mildly IMPRESSIONS: depressive disorder, unspecified, r/o bipolar depression vs major depressive disorder intermittent explosive disorder intellectual disability PLAN: -Patient is admitted under involuntary status to [facility] for stabilization of psychiatric symptoms and safety. Patient has not signed adult voluntary form but did sign medication consent and is placed in patient's chart. A second certification was completed and along with petition will be filed for court. -Medications : Zoloft 50mg daily for mood/anxiety, trazodone 50mg qhs for sleep/mood, Invega Sustenna 234mg IM 12/25, Next dose 12/29 prior to discharge -Ativan and Haldol PRN for agitation/aggression -SW on board for discharge planning. Encourage patient to participate in groups to work on coping skills. Pt report deferring- will need to confirm. Hopeful for discharge next Friday
--- NOTE | 2023-12-28 12:04 | P.PN ---
Progress Note - Text Progress Note Date: 12/28/23 Interval History: Patient was seen walking around the milieu and was agreeable to speak with this senior underwriter bedside. Patient states he is doing good today. Patient is very short with his responses, concrete. Patient is focused on discharge. He says that he spoke with his during visiting hours yesterday and that she did not have any concerns. He is agreeable with receiving Invega PORTER on Friday. He reports sleeping and eating well. Patient offers no other complaints. At this time patient denies any suicidal or homicidal ideation, intent or plan. Patient denies any auditory, visual hallucinations and denies any paranoia or delusions. Patient denies any side effects from the medications and has been compliant with meds. MENTAL STATUS EXAM: General Appearance: Patient appears to be stated age, is alert, directable, and attempts to cooperate. Patient appears to have fair hygiene and grooming. Has shorter hair, blackburn and glasses. Wearing street clothes. Behavior: Patient is seated without any agitated behavior. eye contact, mildly improving Speech: Patient's speech is fluent and nonpressured. Mood/Affect: Patient reports their mood "good", affect is congruent and bright Suicidality/Homicidality: Patient denies having any homicidal ideation intent or plan. Denies any suicidal ideations intent or plan Perceptions: Patient denies any visual hallucinations and denies any auditory hallucinations Though content/process: There is no evidence of any delusional thought content, focused on discharge, denies any paranoia at this time. Memory and concentration: AOX3, grossly intact for the purposes of this session. Judgment and insight: poor/limited chronically. Improving mildly IMPRESSIONS: depressive disorder, unspecified, r/o bipolar depression vs major depressive disorder intermittent explosive disorder intellectual disability PLAN: -Patient is admitted under involuntary status to [facility] for stabilization of psychiatric symptoms and safety. Patient has not signed adult voluntary form but did sign medication consent and is placed in patient's chart. A second cer tification was completed and along with petition will be filed for court. -Medications : Zoloft 50mg daily for mood/anxiety, trazodone 50mg qhs for sleep/mood, Invega Sustenna 234mg IM 12/25, Next dose /2 prior to discharge -Ativan and Haldol PRN for agitation/aggression -SW on board for discharge planning. Encourage patient to participate in groups to work on coping skills. Pt report deferring- will need to confirm. Hopeful for discharge next Friday
--- NOTE | 2023-12-29 11:31 | P.PN ---
Progress Note - Text Progress Note Date: 12/29/23 Interval History: Patient was seen in group and was directable and agreeable to speak with technical document writer in the office. Patient states he is doing good. Patient is focused on discharge, as of right now, patient deferred with his contracts attorney. Pulpit Operator explained to patient that he needs to receive his next dose of Invega Sustenna tomorrow before he can be discharged. Patient agreeable. Patient focused on bruise from getting blood drawn, technical document writer explained to patient that this is normal. Patient offers no other complaints. At this time patient denies any suicidal or homicidal ideations, intent or plan. Patient denies any auditory, visual hallucinations and denies any paranoia or delusions. Patient denies any side effects from the medications and has been compliant with meds. Patient has been going to groups and trying to participate. MENTAL STATUS EXAM: General Appearance: Patient appears to be stated age, is alert, directable, and attempts to cooperate. Patient appears to have fair hygiene and grooming. Has shorter hair, blackburn and glasses. Wearing street clothes. Behavior: Patient is seated without any agitated behavior. eye contact, mildly improving Speech: Patient's speech is fluent and nonpressured. Mood/Affect: Patient reports their mood good, affect is congruent and constricted. Suicidality/Homicidality: Patient denies having any homicidal ideation intent or plan. Denies any suicidal ideations intent or plan Perceptions: Patient denies any visual hallucinations and denies any auditory hallucinations Though content/process: There is no evidence of any delusional thought content focused on discharge, denies any paranoia at this time. Memory and concentration: AOX3, grossly intact for the purposes of this session. Judgment and insight: limited chronically. Improving mildly IMPRESSIONS: depressive disorder, unspecified, r/o bipolar depression vs major depressive disorder intermittent explosive disorder intellectual disability PLAN: -Patient is admitted under involuntary status to [facility] for stabilization of psychiatric symptoms and safety. Patient has not signed adult voluntary form but did sign medication consent and is placed in patient's chart. -Medications: Zoloft 50mg daily for mood/anxiety, trazodone 50mg qhs for sleep/mood, loading dose Invega Sustenna 234mg IM, given 12/25, will give Invega Sustenna 156mg IM, 12/29 prior to discharge, will need monthly maintenance dose of 117 mg IM on 01/26 -Ativan and Haldol PRN for agitation/aggression -SW on board for discharge planning. Encourage patient to participate in groups to work on coping skills. Deferred with contracts attorney on 12/25. Hopeful for discharge Friday if patient continues improving psychiatrically.
[2023-12-30 07:24] VITALS: RESP 16; TEMP 97.8
[2023-12-30] MEDS: PALIPERIDONE IM 156 MG/ML SYG IM ONE (08:01)
[2023-12-30 08:03] VITALS: BP 111/70; PULSE 72
--- NOTE | 2023-12-30 10:17 | P.DS ---
Providers Date of admission: 12/24/23 00:03 Expected date of discharge: 12/30/23 Attending physician: Estevan Lyles MD Consults: 12/24/23 00:31 Consult Physician Routine Consulting Provider: [facility] Consult Reason/Comments: H&P and medical Do you want consulting provider notified?: Yes Primary care physician: Physician Nonstaff - Discharge Diagnosis(es) (1) Depressive disorder Current Visit: Yes Status: Acute Priority: High (2) Intermittent explosive disorder Current Visit: Yes Status: Acute Priority: Medium (3) Intellectual delay Current Visit: Yes Status: Acute Priority: Medium Hospital Course: Admission HPI: Admission note was completed by mortgage or loan underwriter " Patient presented to the hospital on 12/22. As per EPS note, "pt intermittently tearful. pt states, "Basically I want to admit myself to kill myself but not anybody else." pt reports that he has been struggling with SI and has plan to step in front of a semi. pt had been brought in on pickup order completed by his that reported multiple events in which pt had made suicidal statements, left hermosillo on their son, and had stated that their son was not his. pt continues to report SI and states that his sister almost a year ago from brain cancer at this facility. pt states that he wants to to be closer to his sister and father. pt denies any previous attempts. pt denies HI and hallucinations. No dellusional thoughts verbalized to mortgage or loan underwriter. pt cooperative with assessment" Upon todays assessment, patient states he has been having suicidal thoughts for the past week, and has been off his medications for the past week. States he was trying to get another doctor, because the other doctor would not see him anymore. He states he is feeling mean and depressed, and crying daily. Stressors include his son is misbehaving, and he misses his cousin that . Patient claims he is no longer having suicidal thought. He said his sleep was ok, but not great, and he is eating well. Patient is very focused on when he will get out of here. Patient minimizing actions that brought him here. Patient denies any suicidal or homicidal ideations intent or plan. At this time patient denies any auditory or visual hallucinations. Patient denies any flight of ideas racing thoughts. Patients UDS was negative. he was fairly focused on discharge and minimizing his need for hospitalization. ]" Hospital course: Upon admission to the unit patient was admitted involuntarily on a petition and certificate and a second certificate was completed and faxed with the courts. Patient ended up signing a deferral with the scallop binder and agreeing to treatment. Patient got along well with other patients on the unit and followed unit protocol. Patient was compliant with the medications and denied any side effects throughout hospital course. Patient was started on Zoloft increased to dose of 50 mg daily for mood/anxiety, trazodone 50 mg nightly for sleep/mood, patient was transitioned onto Invega Sustenna to help ensure compliance, given loading dose of 234 mg IM on 12/25, second dose of 156 mg IM was given on day of discharge 12/29, next monthly maintenance dose of 117 mg IM will be due on 01/26.. Patient spoke of his stressors and engaged in therapy both group and individual. Patient was also seen by medical team for history and physical exam. Throughout the course of the hospitalization patient gradually improved with regards to mood, anxiety, suicidal thoughts, sleep and returned back to their baseline level of functioning. On the day of discharge patient denied any suicidal or homicidal ideations intent or plan denied any auditory or visual hallucinations. Patient endorsed wanting to live for his health and family/kids. The patient denied any access to guns or weapons. Patient denied any paranoia and did not endorse any delusions. Patient does not have a significant history of substance abuse and was counseled on abstaining from all substances including alcohol and marijuana. Patient was also counseled on the medications and need for regular compliance and was encouraged to follow-up with their outpatient appointment for mental health and also for primary care. Prior to discharge a family meeting will be arranged by social service agency director to answer any questions and ensure safety upon discharge. Mental status exam: General Appearance: Patient appears to be mildly overweight, wearing glasses, unshaven, stated age is alert, pleasant, and cooperative. Patient is in no acute distress and has improved hygiene and grooming Behavior: Patient is calmly seated without any agitated behavior. Speech: Patient's speech is fluent and nonpressured. Mood/Affect: Patient reports their mood is "better", affect is congruent and euthymic. Suicidality/Homicidality: Patient denies having any suicidal or homicidal ideation intent or plan. Perceptions: Patient denies any auditory or visual hallucinations. Though content/process: There is no evidence of any delusional thought content and thought process is linear and goal-directed. More future oriented Memory and concentration: AOX3, grossly intact for the purposes of this session. Can spell "WORLD" backwards correctly. Judgment and insight: Chronically Limited, improved with guarded prognosis Impression: depressive disorder, unspecified, r/o bipolar depression vs major depressive disorder intermittent explosive disorder intellectual disability Plan: -Continue with discharge today as patient has improved and stabilized psychiatrically and is not currently an imminent threat to himself and/or others. Patient will remain at chronically elevated risk for harm to self and/or others due to his impulsivity. -Continue medications: Zoloft 50 mg daily for mood/anxiety, trazodone 50 mg nightly for sleep/mood, patient was given loading dose of Invega Sustenna to help ensure compliance, dose of 234 mg IM was given on 12/25, second dose of Invega Sustenna 156 mg IM was given on 12/29, next monthly maintenance dose will be due at [facility] on 01/26 of 117 mg IM. -Patient was counseled on the need for medication compliance and appropriate follow-up at mental health and also primary care for medical issues. Patient verbalized understanding and agreed. -Social work to arrange for and conduct family meeting to ensure safety upon discharge and answer any questions/concerns. Social work also to arrange for patients follow up appointments with [facility] for psychiatric care along with follow up with primary care provider. -Patient counseled on abstaining from recreational drugs and marijuana and alcohol. Was informed/educated on the adverse effects on their physical and mental health. Patient verbally agreed and understood. -Patient was instructed to return to the hospital or seek immediate medical care if their psychiatric or medical symptoms do worsen or reoccur. Allergies Allergy/AdvReac Type Severity Reaction Status Date / Time No Known Allergies Allergy Verified 12/23/23 17:47 Laboratory Results WBC 10.1 k/uL (3.8-10.6) 12/25/23 07:48 RBC 5.27 m/uL (4.30-5.90) 12/25/23 07:48 Hgb 14.8 gm/dL (13.0-17.5) 12/25/23 07:48 Hct 44.7 % (39.0-53.0) 12/25/23 07:48 MCV 84.9 fL (80.0-100.0) 12/25/23 07:48 MCH 28.1 pg (25.0-35.0) 12/25/23 07:48 MCHC 33.1 g/dL (31.0-37.0) 12/25/23 07:48 RDW 13.0 % (11.5-15.5) 12/25/23 07:48 Plt Count 270 k/uL (150-450) 12/25/23 07:48 MPV 7.7 12/25/23 07:48 Neutrophils % 60 % 12/25/23 07:48 Lymphocytes % 31 % 12/25/23 07:48 Monocytes % 5 % 12/25/23 07:48 Eosinophils % 2 % 12/25/23 07:48 Basophils % 0 % 12/25/23 07:48 Neutrophils # 6.0 k/uL (1.3-7.7) 12/25/23 07:48 Lymphocytes # 3.2 k/uL (1.0-4.8) 12/25/23 07:48 Monocytes # 0.5 k/uL (0-1.0) 12/25/23 07:48 Eosinophils # 0.2 k/uL (0-0.7) 12/25/23 07:48 Basophils # 0.0 k/uL (0-0.2) 12/25/23 07:48 Sodium 143 mmol/L (137-145) 12/25/23 07:48 Potassium 4.3 mmol/L (3.5-5.1) 12/25/23 07:48 Chloride 105 mmol/L (98-107) 12/25/23 07:48 Carbon Dioxide 28 mmol/L (22-30) 12/25/23 07:48 Anion Gap 10 mmol/L 12/25/23 07:48 BUN 17 mg/dL (9-20) 12/25/23 07:48 Creatinine 0.90 mg/dL (0.66-1.25) 12/25/23 07:48 Est GFR (CKD-EPI)AfAm >90 (>60 ml/min/1.73 sqM) 12/25/23 07:48 Est GFR (CKD-EPI)NonAf >90 (>60 ml/min/1.73 sqM) 12/25/23 07:48 Glucose 90 mg/dL (74-99) 12/25/23 07:[address] Glu mg/dL 114 mg/dL 12/25/23 07:44 Hemoglobin A1c 5.6 % (<=6.0) 12/25/23 07:44 Calcium 9.8 mg/dL (8.4-10.2) 12/25/23 07:48 Total Bilirubin 1.5 mg/dL (0.2-1.3) H 12/25/23 07:48 AST 18 U/L (17-59) 12/25/23 07:48 ALT 21 U/L (4-49) 12/25/23 07:48 Alkaline Phosphatase 56 U/L (38-126) 12/25/23 07:48 Total Protein 7.4 g/dL (6.3-8.2) 12/25/23 07:48 Albumin 4.4 g/dL (3.5-5.0) 12/25/23 07:48 Triglycerides 219.00 mg/dL (0.00-149.00) H 12/25/23 07:48 Cholesterol 137.00 mg/dL (0.00-200.00) 12/25/23 07:48 LDL Cholesterol, Calc 56.4 mg/dL (0.0-131.0) 12/25/23 07:48 VLDL Cholesterol, Calc 43.80 mg/dL (5.00-40.00) H 12/25/23 07:48 HDL Cholesterol 36.80 mg/dL (40.00-60.00) L 12/25/23 07:48 Cholesterol/HDL Ratio 3.72 Ratio 12/25/23 07:48 TSH 0.838 mIU/L (0.465-4.680) 12/25/23 07:48 Urine Color Light Yellow 12/23/23 23:00 Urine Appearance Clear (Clear) 12/23/23 23:00 Urine pH 6.0 (5.0-8.0) 12/23/23 23:00 Ur Specific [place] 1.019 (1.001-1.035) 12/23/23 23:00 Urine Protein Negative (Negative) 12/23/23 23:00 Urine Glucose (UA) Negative (Negative) 12/23/23 23:00 Urine Ketones Negative (Negative) 12/23/23 23:00 Urine Blood Trace (Negative) H 12/23/23 23:00 Urine Nitrite Negative (Negative) 12/23/23 23:00 Urine Bilirubin Negative (Negative) 12/23/23 23:00 Urine Urobilinogen <2.0 mg/dL (<2.0) 12/23/23 23:00 Ur Leukocyte Esterase Negative (Negative) 12/23/23 23:00 Urine RBC 1 /hpf (0-5) 12/23/23 23:00 Calcium Oxalate Crystal Few /hpf (None) H 12/23/23 23:00 Urine Mucus Few /hpf (None) H 12/23/23 23:00 Urine Opiates Screen Not Detected (NotDetected) 12/23/23 23:00 Ur Oxycodone Screen Not Detected (NotDetected) 12/23/23 23:00 Urine Methadone Screen Not Detected (NotDetected) 12/23/23 23:00 Ur Barbiturates Screen Not Detected (NotDetected) 12/23/23 23:00 U Tricyclic Antidepress Not Detected (NotDetected) 12/23/23 23:00 Ur Phencyclidine Scrn Not Detected (NotDetected) 12/23/23 23:00 Ur Amphetamines Screen Not Detected (NotDetected) 12/23/23 23:00 U Methamphetamines Scrn Not Detected (NotDetected) 12/23/23 23:00 U Benzodiazepines Scrn Not Detected (NotDetected) 12/23/23 23:00 Urine Cocaine Screen Not Detected (NotDetected) 12/23/23 23:00 U Marijuana (THC) Screen Not Detected (NotDetected) 12/23/23 23:00 SARS-CoV-2 (PCR) Not Detected (Not Detectd) 12/23/23 22:43 Vital Signs Temp 97.8 F 12/30/23 06:56 Pulse 72 12/30/23 08:00 Resp 16 12/30/23 06:56 BP 111/70 12/30/23 08:00 Pulse Ox 99 12/29/23 06:00 FiO2 Patient Condition at Discharge: Stable Plan - Discharge Summary Discharge Rx Participant: No New Discharge Prescriptions: New Paliperidone Palmitate [Invega Sustenna] 117 mg IM QMONTHLY #1 each Acetaminophen Tab [Tylenol] 650 mg PO Q4HR PRN tab PRN Reason: Mild Pain (Scale 1 To 3) Sertraline [Zoloft] 50 mg PO DAILY 14 Days #14 tab Continue amLODIPine [Norvasc] 5 mg PO DAILY Atorvastatin [Lipitor] 10 mg PO DAILY lisinopriL [Zestril] 5 mg PO DAILY traZODone HCL [Desyrel] 50 mg PO HS 14 Days #14 tab Discontinued risperiDONE [RisperDAL] 3 mg PO HS buPROPion XL [Wellbutrin XL] 300 mg PO DAILY Discharge Medication List Atorvastatin [Lipitor] 10 mg PO DAILY 12/23/23 [History] amLODIPine [Norvasc] 5 mg PO DAILY 12/23/23 [History] lisinopriL [Zestril] 5 mg PO DAILY 12/23/23 [History] Acetaminophen Tab [Tylenol] 650 mg PO Q4HR PRN tab 12/30/23 [Rx] Paliperidone Palmitate [Invega Sustenna] 117 mg IM QMONTHLY #1 each 12/30/23 [Rx] Sertraline [Zoloft] 50 mg PO DAILY 14 Days #14 tab 12/30/23 [Rx] traZODone HCL [Desyrel] 50 mg PO HS 14 Days #14 tab 12/30/23 [Rx] Follow up Appointment(s)/Referral(s): [facility] [Outside] - 01/01/24 10:00 am (01-01-24 10am with Faby Higuera 01-02-24 9am with Deidra/NIC Both are in office) [facility] Week Patient Instructions/Handouts: Depression (DC), Suicide Prevention (DC) Activity/Diet/Wound Care/Special Instructions: Avoid the use of street drugs and alcohol. Take all medications as prescribed. When you are in need of refills on your medications, please contact your medical provider and/or outpatient psychiatrist/provider to have this done. Please go to your scheduled outpatient appointment for aftercare treatment. If symptoms return or become worse, call the crisis line at and/or go to the nearest emergency room for evaluation. National Suicide Hotline 198. Discharge Disposition: HOME SELF-CARE
== END 2023-12-30 13:02 | disposition home or self-care (01) | DRG 881 ==
LOC: EC 16:38 → EEVIPCON 16:38 → 3MHU 12-24 00:03
PROVIDERS: ADMIT Psychiatry & Neurology Psychiatry; ATTEND Psychiatry & Neurology Psychiatry
DX: F32.A Depression, unspecified (principal); R45.851 Suicidal ideations; F79 Unspecified intellectual disabilities; I10 Essential (primary) hypertension; F63.81 Intermittent explosive disorder; Z11.52 Encounter for screening for COVID-19; Z28.310 Unvaccinated for COVID-19; E78.5 Hyperlipidemia, unspecified; Z79.899 Other long term (current) drug therapy; Z87.891 Personal history of nicotine dependence; Z59.12 Inadequate housing utilities; Z58.81 Basic services unavailable in physical environment; Z59.48 Other specified lack of adequate food; Z59.82 Transportation insecurity; Z59.819 Housing instability, housed unspecified; Z56.0 Unemployment, unspecified; Z86.14 Personal history of Methicillin resistant Staphylococcus aureus infection; Z71.51 Drug abuse counseling and surveillance of drug abuser
CPT/HCPCS: 80053; 80061; 80306; 81001; 82075; 83036; 84443; 85025; 87635; 99291